=== PATIENT | female | born 1980 | race Caucasian/White ===

== ENCOUNTER → 2016-10-02 | Outpatient (CLI) | payer OTHER ==
[~2016-10-02] MED LIST: AMOXICILLIN500 M1 PO; ATIVAN0.5 MG PO; CLARITIN,ALAVAR10 MG PO; CLARITIN10 M3 PO; CLINDAMYCIN HC300 MG PO; DAILY VALUE1 EACH PO; DECADRON4 MG PO; DEXAMETHASONE4 MG PO; ENDOCET 5-3251 EACH PO; FEMARA2.5 MG PO; IBUPROFEN800 MG PO; IMODIUM MS REL1 EACH PO; LOMOTIL TABLET1 EACH PO; MULTIVITAMIN1 EAC2 PO; NEURONTIN300 MG PO; NOLVADEX20 MG PO; NORCO 5/3251 TABLET PO; OMEPRAZOLE20 M2 PO; ONDANSETRON HCL8 MG PO; OXYCODONE HCL5 MG PO; REGLAN10 MG PO; ROXICODONE5 MG PO
[2016-10-02 10:28] LABS: HEMATOCRIT 38.3 % (36.0-46.0); MCH 29.8 PG (29.0-34.0); MCHC 35.2 G/DL (30.0-36.0); MCV 84.5 FL (83-99); MEAN PLAT.VOLUME 11.5 uM^3 (9.5-12.4); PLATELET COUNT 252 K/uL (156-360); RBC DIS.WIDTH-CV 14.3 % (11.8-14.6); RBC DIS.WIDTH-SD 43.6 % (39-53); RED BLOOD COUNT 4.53 M/uL (3.80-5.20); WHITE BLOOD COUNT 17.4 K/uL (4.1-10.2)
[2016-10-02 10:42] LABS: INTER. NORMALIZED RATIO 1.1; PROTHROMBIN TIME 10.8 (9.2-11.2); PTT 20.3 (25-32)
== END | disposition home or self-care (01) ==
LOC: OPR 09:43 → EDSTATUS 10:00 → OPR 10:00
PROVIDERS: Internal Medicine Hematology & Oncology
PROC: 0FB13ZX Excision of Right Lobe Liver, Percutaneous Approach, Diagnostic (ICD-10-PCS; principal; 2016-10-02)
DX: C78.7 Secondary malignant neoplasm of liver and intrahepatic bile duct (principal); C50.919 Malignant neoplasm of unspecified site of unspecified female breast; C79.31 Secondary malignant neoplasm of brain; Z92.21 Personal history of antineoplastic chemotherapy; Z80.1 Family history of malignant neoplasm of trachea, bronchus and lung; Z80.3 Family history of malignant neoplasm of breast; Z80.8 Family history of malignant neoplasm of other organs or systems
CPT/HCPCS: 77012; 85027; 85610; 85730; 88307; 88341 TC; 88342 TC; J3010

== ENCOUNTER 2017-04-08 14:42 | Inpatient (IN) | payer OTHER ==
[~2017-04-08] VITALS: Ht 152.4 cm; Wt 59.6 kg
[~2017-04-08 14:42] MED LIST changes: +BASAGLAR K100 UNIT/1 SC; +LANTUS 3 M100 UNITS1 SCCONT; +MAALOX MAXIMUM355 ML PO; +NOVOLOG100 UNIT/1 SC; +OXAYDO5 MG PO; +XELODA500 MG PO; +ZANTAC300 MG PO; +ZOFRAN4 MG PO; +[UNRECOGNIZED DRUG - OTHER] IV
[2017-04-08] MEDS ORDERED: HERCEPTIN10 MG/0.47 IV (18:09)
[2017-04-08] MEDS ORDERED: POTASSIUM CHLO20 ME2 PO (18:10)
[2017-04-08] MEDS ORDERED: TRANSDERM-SCOP1 EACH TD (18:11)
[2017-04-08 20:52] LABS: ANION GAP 17 MEQ/L (2-14); CHLORIDE 93 MEQ/L (99-109); GFR ESTIMATE (CALCULATED) 45 mL/min/; GLUCOSE 169 mg/dL (70-99); POTASSIUM 3.2 MEQ/L (3.7-5.4); SAMPLE HEMOLYSIS CHECK 0; SAMPLE ICTERIC CHECK 2; SAMPLE LIPEMIA CHECK 0; SODIUM 134 MEQ/L (136-147); UREA NITROGEN (BUN) 21 mg/dL (9-23)
[2017-04-09 00:23] VITALS: BP 106/63
[2017-04-09 05:48] VITALS: BP 111/70
[2017-04-09 07:32] LABS: POINT-OF-CARE METER ID UU14174216
[2017-04-09 08:06] VITALS: BP 120/80
[2017-04-09 08:35] LABS: ALKALINE PHOSPHATASE 425 IU/L (3-129); ANION GAP 11 MEQ/L (2-14); CHLORIDE 92 MEQ/L (99-109); GFR ESTIMATE (CALCULATED) 42 mL/min/; GLUCOSE 211 mg/dL (70-99); POTASSIUM 3.8 MEQ/L (3.7-5.4); SAMPLE HEMOLYSIS CHECK 0; SAMPLE ICTERIC CHECK 2; SAMPLE LIPEMIA CHECK 0; SODIUM 129 MEQ/L (136-147); TOTAL BILIRUBIN 6.8 MG/DL (0.0-1.0); UREA NITROGEN (BUN) 22 mg/dL (9-23)
[2017-04-09 09:07] LABS: URIC ACID 10.4 mg/dL (3.1-9.2)
[2017-04-09 11:26] LABS: POINT-OF-CARE METER ID UU14174216
[2017-04-09 16:28] VITALS: BP 117/74
[2017-04-09 17:03] LABS: POINT-OF-CARE METER ID UU13113725
[2017-04-09 20:33] LABS: ANION GAP 11 MEQ/L (2-14); CHLORIDE 93 MEQ/L (99-109); GFR ESTIMATE (CALCULATED) 42 mL/min/; GLUCOSE 242 mg/dL (70-99); POTASSIUM 3.1 MEQ/L (3.7-5.4); SAMPLE HEMOLYSIS CHECK 0; SAMPLE ICTERIC CHECK 1; SAMPLE LIPEMIA CHECK 0; SODIUM 130 MEQ/L (136-147); UREA NITROGEN (BUN) 23 mg/dL (9-23)
[2017-04-09 21:16] LABS: POINT-OF-CARE METER ID UU13113725
[2017-04-09 23:30] VITALS: BP 106/78
[2017-04-10 06:38] LABS: POINT-OF-CARE METER ID UU13113725
[2017-04-10 07:01] LABS: ALKALINE PHOSPHATASE 500 IU/L (3-129); DIRECT BILIRUBIN 4.3 mg/dL (0.0-0.3); SAMPLE HEMOLYSIS CHECK 0; SAMPLE ICTERIC CHECK 2; SAMPLE LIPEMIA CHECK 0; TOTAL BILIRUBIN 6.8 MG/DL (0.0-1.0)
[2017-04-10 08:45] VITALS: BP 100/69
[2017-04-10 08:59] LABS: ANION GAP 11 MEQ/L (2-14); CHLORIDE 94 MEQ/L (99-109); GFR ESTIMATE (CALCULATED) 36 mL/min/; GLUCOSE 156 mg/dL (70-99); POTASSIUM 3.2 MEQ/L (3.7-5.4); SODIUM 132 MEQ/L (136-147); UREA NITROGEN (BUN) 28 mg/dL (9-23)
[2017-04-10 09:19] LABS: EOSINOPHIL (%) 1.8 % (0-5); EOSINOPHIL COUNT 0.2 K/uL (0-0.3); HEMATOCRIT 35.9 % (36.0-46.0); IMMATURE GRANULOCYTE (%) 0.6 % (0.0-0.7); IMMATURE GRANULOCYTE COUNT 0.1 K/uL; INSTRUMENT ABS NEUTROPHIL CT 8.8 K/uL; LYMPHOCYTE COUNT 0.6 K/uL (1.0-2.8); MCH 33.8 PG (29.0-34.0); MCHC 32.6 G/DL (30.0-36.0); MCV 103.8 FL (83-99); MEAN PLAT.VOLUME 13.7 uM^3 (9.5-12.4); MONOCYTE (%) 8.5 % (3-12); MONOCYTE COUNT 0.9 K/uL (0-0.8); NEUTROPHIL (%) 82.9 % (45-76); NEUTROPHIL COUNT 8.8 K/uL (1.8-6.4); PLATELET COUNT 304 K/uL (156-360); RBC DIS.WIDTH-CV 17.3 % (11.8-14.6); RBC DIS.WIDTH-SD 66.2 % (39-53); RED BLOOD COUNT 3.46 M/uL (3.80-5.20); WHITE BLOOD COUNT 10.7 K/uL (4.1-10.2)
[2017-04-10 10:51] LABS: POINT-OF-CARE METER ID UU13113725
[2017-04-10 12:07] LABS: ADD MIUA? NO; BILIRUBIN NEGATIVE; BLOOD NEGATIVE; GLUCOSE (STRIP) >=500; KETONES NEGATIVE; LEUKOCYTES NEGATIVE; NITRITE NEGATIVE; PROTEIN (STRIP) 30; SPECIFIC GRAVITY 1.008 (1.000-1.030); UCUL ADDED? NO; UROBILINOGEN 0.2 MG/DL (0.2-1.0)
[2017-04-10 12:16] LABS: COLOR YELLOW ((YELLOW))
[2017-04-10 14:55] LABS: ANION GAP 10 MEQ/L (2-14); CHLORIDE 91 MEQ/L (99-109); GFR ESTIMATE (CALCULATED) 39 mL/min/; GLUCOSE 219 mg/dL (70-99); POTASSIUM 3.7 MEQ/L (3.7-5.4); SAMPLE HEMOLYSIS CHECK 0; SAMPLE ICTERIC CHECK 2; SAMPLE LIPEMIA CHECK 0; SODIUM 127 MEQ/L (136-147); UREA NITROGEN (BUN) 27 mg/dL (9-23)
[2017-04-10 16:50] VITALS: BP 102/66
[2017-04-10 17:14] LABS: MAGNESIUM 1.2 mg/dl (1.3-2.7)
[2017-04-10 18:04] LABS: ANION GAP 12 MEQ/L (2-14); CHLORIDE 91 MEQ/L (99-109); GFR ESTIMATE (CALCULATED) 39 mL/min/; GLUCOSE 215 mg/dL (70-99); POTASSIUM 3.7 MEQ/L (3.7-5.4); SAMPLE HEMOLYSIS CHECK 0; SAMPLE ICTERIC CHECK 2; SAMPLE LIPEMIA CHECK 0; SODIUM 126 MEQ/L (136-147); UREA NITROGEN (BUN) 25 mg/dL (9-23)
[2017-04-10 20:51] VITALS: BP 105/70
[2017-04-11] VITALS (7 sets, daily range): BP systolic 97–118; BP diastolic 56–80
[2017-04-11 06:13] LABS: EOSINOPHIL COUNT 0.2 K/uL (0-0.3); HEMATOCRIT 27.7 % (36.0-46.0); IMMATURE GRANULOCYTE (%) 0.8 % (0.0-0.7); IMMATURE GRANULOCYTE COUNT 0.1 K/uL; INSTRUMENT ABS NEUTROPHIL CT 6.3 K/uL; LYMPHOCYTE COUNT 0.5 K/uL (1.0-2.8); MCH 35.4 PG (29.0-34.0); MCHC 34.3 G/DL (30.0-36.0); MCV 103.4 FL (83-99); MEAN PLAT.VOLUME 12.9 uM^3 (9.5-12.4); MONOCYTE (%) 9.5 % (3-12); MONOCYTE COUNT 0.7 K/uL (0-0.8); NEUTROPHIL (%) 81.4 % (45-76); NEUTROPHIL COUNT 6.3 K/uL (1.8-6.4); PLATELET COUNT 216 K/uL (156-360); RBC DIS.WIDTH-CV 17.2 % (11.8-14.6); RBC DIS.WIDTH-SD 63.7 % (39-53); WHITE BLOOD COUNT 7.7 K/uL (4.1-10.2)
[2017-04-11 06:18] LABS: RED BLOOD COUNT 2.68 M/uL (3.80-5.20)
[2017-04-11 06:23] LABS: ALKALINE PHOSPHATASE 396 IU/L (3-129); ANION GAP 9 MEQ/L (2-14); CHLORIDE 100 MEQ/L (99-109); GFR ESTIMATE (CALCULATED) 42 mL/min/; POTASSIUM 3.1 MEQ/L (3.7-5.4); SAMPLE HEMOLYSIS CHECK 0; SAMPLE ICTERIC CHECK 1; SAMPLE LIPEMIA CHECK 0; TOTAL BILIRUBIN 5.8 MG/DL (0.0-1.0); UREA NITROGEN (BUN) 21 mg/dL (9-23)
[2017-04-11 06:26] LABS: GLUCOSE 115 mg/dL (70-99); SODIUM 134 MEQ/L (136-147)
[2017-04-11 06:58] LABS: ANION GAP 13 MEQ/L (2-14); CHLORIDE 99 MEQ/L (99-109); GFR ESTIMATE (CALCULATED) 42 mL/min/; SAMPLE HEMOLYSIS CHECK 0; SAMPLE ICTERIC CHECK 1; SAMPLE LIPEMIA CHECK 0; UREA NITROGEN (BUN) 21 mg/dL (9-23)
[2017-04-11 06:59] LABS: GLUCOSE 119 mg/dL (70-99); SODIUM 134 MEQ/L (136-147); URIC ACID 3.1 mg/dL (3.1-9.2)
[2017-04-12 04:59] VITALS: BP 115/62
[2017-04-12 05:55] LABS: EOSINOPHIL (%) 1.1 % (0-5); EOSINOPHIL COUNT 0.1 K/uL (0-0.3); HEMATOCRIT 28.7 % (36.0-46.0); IMMATURE GRANULOCYTE (%) 0.5 % (0.0-0.7); INSTRUMENT ABS NEUTROPHIL CT 7.6 K/uL; LYMPHOCYTE COUNT 0.3 K/uL (1.0-2.8); MCH 35.1 PG (29.0-34.0); MCHC 34.1 G/DL (30.0-36.0); MCV 102.9 FL (83-99); MEAN PLAT.VOLUME 13.3 uM^3 (9.5-12.4); MONOCYTE (%) 9.1 % (3-12); MONOCYTE COUNT 0.8 K/uL (0-0.8); NEUTROPHIL (%) 85.9 % (45-76); NEUTROPHIL COUNT 7.6 K/uL (1.8-6.4); PLATELET COUNT 260 K/uL (156-360); RBC DIS.WIDTH-CV 17.1 % (11.8-14.6); RBC DIS.WIDTH-SD 63.9 % (39-53); RED BLOOD COUNT 2.79 M/uL (3.80-5.20); WHITE BLOOD COUNT 8.9 K/uL (4.1-10.2)
[2017-04-12 06:43] LABS: ANION GAP 6 MEQ/L (2-14); CHLORIDE 102 MEQ/L (99-109); GFR ESTIMATE (CALCULATED) 49 mL/min/; GLUCOSE 152 mg/dL (70-99); POTASSIUM 3.2 MEQ/L (3.7-5.4); SAMPLE HEMOLYSIS CHECK 0; SAMPLE ICTERIC CHECK 2; SAMPLE LIPEMIA CHECK 0; SODIUM 131 MEQ/L (136-147); UREA NITROGEN (BUN) 15 mg/dL (9-23)
[2017-04-12 06:44] LABS: ALKALINE PHOSPHATASE 432 IU/L (3-129); ANION GAP 7 MEQ/L (2-14); CHLORIDE 101 MEQ/L (99-109); GFR ESTIMATE (CALCULATED) 49 mL/min/; GLUCOSE 153 mg/dL (70-99); POTASSIUM 3.2 MEQ/L (3.7-5.4); SAMPLE HEMOLYSIS CHECK 0; SAMPLE ICTERIC CHECK 2; SAMPLE LIPEMIA CHECK 0; SODIUM 132 MEQ/L (136-147); TOTAL BILIRUBIN 6.3 MG/DL (0.0-1.0); UREA NITROGEN (BUN) 15 mg/dL (9-23)
[2017-04-12 07:19] VITALS: BP 119/66
[2017-04-12 08:39] LABS: POINT-OF-CARE METER ID UU13113698; POINT-OF-CARE USER ID NUTSLF44
[2017-04-12 12:00] VITALS: BP 115/77
[2017-04-12 12:27] LABS: POINT-OF-CARE METER ID UU14174216; POINT-OF-CARE USER ID NUTSLF44
[2017-04-12] MEDS ORDERED: ULORIC40 MG PO (14:16)
[2017-04-12 15:51] VITALS: BP 116/74
[2017-04-12 16:48] LABS: POINT-OF-CARE METER ID UU13113698
[2017-04-12 21:24] VITALS: BP 114/72
[2017-04-13 01:41] VITALS: BP 108/62
[2017-04-13 05:32] VITALS: BP 124/74
[2017-04-13 05:38] LABS: EOSINOPHIL (%) 0.8 % (0-5); EOSINOPHIL COUNT 0.1 K/uL (0-0.3); HEMATOCRIT 29.3 % (36.0-46.0); IMMATURE GRANULOCYTE (%) 0.5 % (0.0-0.7); IMMATURE GRANULOCYTE COUNT 0.1 K/uL; INSTRUMENT ABS NEUTROPHIL CT 8.2 K/uL; LYMPHOCYTE COUNT 0.5 K/uL (1.0-2.8); MCH 33.1 PG (29.0-34.0); MCHC 32.8 G/DL (30.0-36.0); MEAN PLAT.VOLUME 12.8 uM^3 (9.5-12.4); MONOCYTE (%) 10.7 % (3-12); MONOCYTE COUNT 1.1 K/uL (0-0.8); NEUTROPHIL (%) 83.1 % (45-76); NEUTROPHIL COUNT 8.2 K/uL (1.8-6.4); PLATELET COUNT 264 K/uL (156-360); RBC DIS.WIDTH-CV 17.5 % (11.8-14.6); RBC DIS.WIDTH-SD 64.3 % (39-53); WHITE BLOOD COUNT 9.9 K/uL (4.1-10.2)
[2017-04-13 06:39] LABS: ANION GAP 11 MEQ/L (2-14); CHLORIDE 103 MEQ/L (99-109); GFR ESTIMATE (CALCULATED) 54 mL/min/; SAMPLE HEMOLYSIS CHECK 0; SAMPLE ICTERIC CHECK 2; SAMPLE LIPEMIA CHECK 0; SODIUM 136 MEQ/L (136-147); UREA NITROGEN (BUN) 11 mg/dL (9-23)
[2017-04-13 06:46] LABS: ALKALINE PHOSPHATASE 448 IU/L (3-129); ANION GAP 12 MEQ/L (2-14); CHLORIDE 104 MEQ/L (99-109); GFR ESTIMATE (CALCULATED) 54 mL/min/; MAGNESIUM 1.1 mg/dl (1.3-2.7); POTASSIUM 2.9 MEQ/L (3.7-5.4); SAMPLE HEMOLYSIS CHECK 0; SAMPLE ICTERIC CHECK 2; SAMPLE LIPEMIA CHECK 0; SODIUM 137 MEQ/L (136-147); UREA NITROGEN (BUN) 11 mg/dL (9-23)
[2017-04-13 06:58] LABS: GLUCOSE 98 mg/dL (70-99)
[2017-04-13 07:01] LABS: GLUCOSE 98 mg/dL (70-99)
[2017-04-13 08:00] VITALS: BP 118/77
[2017-04-13 08:08] LABS: POINT-OF-CARE METER ID UU13113781; POINT-OF-CARE USER ID NUTSLF44
[2017-04-13 11:54] LABS: POINT-OF-CARE METER ID UU13113781; POINT-OF-CARE USER ID NUTSLF44
[2017-04-13 12:33] VITALS: BP 114/77
[2017-04-13] MEDS ORDERED: NEUTRA-PHOS,1 PACKET PO (13:52)
[2017-04-13] MEDS ORDERED: MAGNESIUM400 M1 PO (13:52)
[2017-04-13] MEDS ORDERED: POTASSIUM CHLO20 ME2 PO (13:53)
== END 2017-04-13 17:00 | disposition home health service (06) | DRG 641 ==
LOC: EME 14:42 → EDOF 16:17 → 5EAST 16:17 → 4EAST 16:17 → CANRESERV 16:41 → ENRESERV 16:41 → EDOF 17:48 → 4EAST 19:21 → ENRESERV 04-09 13:34 → CANRESERV 04-09 14:56 → ENRESERV 04-09 14:56 → 5EAST 04-09 15:59 → ENRESERV 04-10 19:38 → 4EAST 04-10 20:40
PROVIDERS: Emergency Medicine; Internal Medicine; Internal Medicine Nephrology; Student in an Organized Health Care Education/Training Program
DX: E83.52 Hypercalcemia (principal); E87.2 Acidosis; R18.8 Other ascites; N17.9 Acute kidney failure, unspecified; C79.51 Secondary malignant neoplasm of bone; C78.7 Secondary malignant neoplasm of liver and intrahepatic bile duct; G91.9 Hydrocephalus, unspecified; J98.11 Atelectasis; C79.31 Secondary malignant neoplasm of brain; R17 Unspecified jaundice; E87.1 Hypo-osmolality and hyponatremia; T38.0X5A Adverse effect of glucocorticoids and synthetic analogues, initial encounter; E83.39 Other disorders of phosphorus metabolism; E83.42 Hypomagnesemia; E09.9 Drug or chemical induced diabetes mellitus without complications; E87.6 Hypokalemia; E86.0 Dehydration; E87.8 Other disorders of electrolyte and fluid balance, not elsewhere classified; Z80.1 Family history of malignant neoplasm of trachea, bronchus and lung; Z85.3 Personal history of malignant neoplasm of breast; Z80.8 Family history of malignant neoplasm of other organs or systems; Z90.13 Acquired absence of bilateral breasts and nipples; Z90.710 Acquired absence of both cervix and uterus; Z92.3 Personal history of irradiation
CPT/HCPCS: 36415; 71010; 80048; 80048 91; 80053; 80069; 80076; 81003; 82948; 83605; 83735; 84100; 84550; 85025; 85610; 87040; 93005; 94799; 99281; 99285; J0630; J0696; J1650; J1815; J1940; J2405; J2543; J3475; J3480; J3489; J7030; J7050; J7120

== ENCOUNTER 2017-04-15 15:51 | Inpatient (IN) | payer OTHER ==
[~2017-04-15] VITALS: Ht 152.4 cm; Wt 64.8 kg
[~2017-04-15 15:51] MED LIST changes: +HERCEPTIN10 MG/0.47 IV; +MAGNESIUM400 M1 PO; +NEUTRA-PHOS,1 PACKET PO; +POTASSIUM CHLO20 ME2 PO; +TRANSDERM-SCOP1 EACH TD; +ULORIC40 MG PO
[2017-04-15 16:44] LABS: ADD MIUA? YES; BILIRUBIN NEGATIVE; BLOOD SMALL; COLOR YELLOW ((YELLOW)); GLUCOSE (STRIP) 150; KETONES NEGATIVE; LEUKOCYTES NEGATIVE; NITRITE NEGATIVE; PROTEIN (STRIP) 30; SPECIFIC GRAVITY 1.006 (1.000-1.030); UROBILINOGEN 0.2 MG/DL (0.2-1.0)
[2017-04-15 16:50] LABS: BACTERIA NONE SEEN /HPF; EPITHELIAL CELLS RARE /HPF; MUCUS TRACE /LPF; RED BLOOD CELLS 0-5 /HPF (0-5); UCUL ADDED? NO; WHITE BLOOD CELLS 0-5 /HPF (0-5)
[2017-04-15 16:52] LABS: HEMATOCRIT 31.8 % (36.0-46.0); MCH 33.8 PG (29.0-34.0); MCV 99.4 FL (83-99); MEAN PLAT.VOLUME 12.8 uM^3 (9.5-12.4); PLATELET COUNT 302 K/uL (156-360); RBC DIS.WIDTH-CV 17.5 % (11.8-14.6); RBC DIS.WIDTH-SD 63.2 % (39-53); WHITE BLOOD COUNT 12.1 K/uL (4.1-10.2)
[2017-04-15 17:05] LABS: CHLORIDE 103 mEq/L (99-109); POTASSIUM 3.1 mEq/L (3.7-5.4); SODIUM 133 mEq/L (136-147)
[2017-04-15 17:09] LABS: ANION GAP 14 MEQ/L (2-14); GLUCOSE 72 mg/dL (70-99); TOTAL BILIRUBIN 6.9 mg/dL (0.0-1.0)
[2017-04-15 17:11] LABS: ALKALINE PHOSPHATASE 634 IU/L (3-129); GFR ESTIMATE (CALCULATED) > 59 mL/min/
[2017-04-15 17:12] LABS: UREA NITROGEN (BUN) 11 mg/dL (9-23)
[2017-04-15 17:13] LABS: DIRECT BILIRUBIN 5.6 mg/dL (0.0-0.3)
[2017-04-15 17:14] LABS: URIC ACID 2.2 mg/dL (3.1-9.2)
[2017-04-15 17:15] LABS: LIPASE 30 U/L (1.0-51.0)
[2017-04-15 17:17] LABS: TROP-I INTERPRETATION NEGATIVE; TROPONIN-I 0.03 ng/mL (0.0-0.30)
[2017-04-15] MEDS ORDERED: PROCHLORPERAZIN10 MG PO (21:37)
[2017-04-15] MEDS ORDERED: ONDANSETRON HCL8 MG PO (21:38)
[2017-04-15] MEDS ORDERED: HALAVEN1 MG/2 ML IV (21:40)
[2017-04-15 22:18] VITALS: BP 116/66
[2017-04-16] VITALS (7 sets, daily range): BP systolic 104–133; BP diastolic 55–81
[2017-04-16 05:14] LABS: HEMATOCRIT 27.2 % (36.0-46.0); MCH 34.7 PG (29.0-34.0); MCHC 33.8 G/DL (30.0-36.0); MCV 102.6 FL (83-99); MEAN PLAT.VOLUME 12.3 uM^3 (9.5-12.4); PLATELET COUNT 249 K/uL (156-360); RBC DIS.WIDTH-CV 18.3 % (11.8-14.6); RBC DIS.WIDTH-SD 66.8 % (39-53); RED BLOOD COUNT 2.65 M/uL (3.80-5.20); WHITE BLOOD COUNT 10.2 K/uL (4.1-10.2)
[2017-04-16 06:33] LABS: ALKALINE PHOSPHATASE 459 IU/L (3-129); ANION GAP 13 MEQ/L (2-14); CHLORIDE 106 MEQ/L (99-109); GFR ESTIMATE (CALCULATED) 54 mL/min/; SAMPLE HEMOLYSIS CHECK 0; SAMPLE ICTERIC CHECK 2; SAMPLE LIPEMIA CHECK 0; SODIUM 135 MEQ/L (136-147); TOTAL BILIRUBIN 7.1 MG/DL (0.0-1.0); UREA NITROGEN (BUN) 14 mg/dL (9-23)
[2017-04-16 06:34] LABS: GLUCOSE 150 mg/dL (70-99); MAGNESIUM 0.9 mg/dl (1.3-2.7); POTASSIUM 4.5 MEQ/L (3.7-5.4)
[2017-04-17 03:56] VITALS: BP 111/55
[2017-04-17 05:24] LABS: EOSINOPHIL (%) 0.4 % (0-5); HEMATOCRIT 26.4 % (36.0-46.0); IMMATURE GRANULOCYTE (%) 1.2 % (0.0-0.7); IMMATURE GRANULOCYTE COUNT 0.1 K/uL; INSTRUMENT ABS NEUTROPHIL CT 9.5 K/uL; LYMPHOCYTE COUNT 0.3 K/uL (1.0-2.8); MCH 34.6 PG (29.0-34.0); MCHC 33.7 G/DL (30.0-36.0); MCV 102.7 FL (83-99); MEAN PLAT.VOLUME 12.2 uM^3 (9.5-12.4); MONOCYTE (%) 3.4 % (3-12); MONOCYTE COUNT 0.4 K/uL (0-0.8); NEUTROPHIL (%) 92.4 % (45-76); NEUTROPHIL COUNT 9.5 K/uL (1.8-6.4); PLATELET COUNT 245 K/uL (156-360); RBC DIS.WIDTH-CV 18.3 % (11.8-14.6); RBC DIS.WIDTH-SD 67.9 % (39-53); RED BLOOD COUNT 2.57 M/uL (3.80-5.20); WHITE BLOOD COUNT 10.3 K/uL (4.1-10.2)
[2017-04-17 06:29] LABS: ALKALINE PHOSPHATASE 433 IU/L (3-129); ANION GAP 8 MEQ/L (2-14); CHLORIDE 104 MEQ/L (99-109); GFR ESTIMATE (CALCULATED) 45 mL/min/; POTASSIUM 4.1 MEQ/L (3.7-5.4); SAMPLE HEMOLYSIS CHECK 0; SAMPLE ICTERIC CHECK 2; SAMPLE LIPEMIA CHECK 0; SODIUM 134 MEQ/L (136-147); TOTAL BILIRUBIN 6.9 MG/DL (0.0-1.0); UREA NITROGEN (BUN) 18 mg/dL (9-23)
[2017-04-17 06:30] LABS: GLUCOSE 88 mg/dL (70-99); MAGNESIUM 1.7 mg/dl (1.3-2.7)
[2017-04-17 07:47] LABS: POINT-OF-CARE METER ID UU13113781
[2017-04-17 08:15] VITALS: BP 107/64
[2017-04-17 11:30] LABS: POINT-OF-CARE METER ID UU13113781
[2017-04-17 12:20] VITALS: BP 115/70
[2017-04-17 16:11] LABS: POINT-OF-CARE METER ID UU13113781
[2017-04-17 16:39] VITALS: BP 116/63
[2017-04-17 20:00] VITALS: BP 118/76
[2017-04-18 01:03] VITALS: BP 119/60
[2017-04-18 06:55] LABS: POINT-OF-CARE METER ID UU13113725
[2017-04-18 06:56] LABS: EOSINOPHIL (%) 0.8 % (0-5); EOSINOPHIL COUNT 0.1 K/uL (0-0.3); HEMATOCRIT 24.2 % (36.0-46.0); IMMATURE GRANULOCYTE (%) 2.3 % (0.0-0.7); IMMATURE GRANULOCYTE COUNT 0.2 K/uL; INSTRUMENT ABS NEUTROPHIL CT 6.8 K/uL; LYMPHOCYTE COUNT 0.2 K/uL (1.0-2.8); MCH 32.9 PG (29.0-34.0); MCHC 32.2 G/DL (30.0-36.0); MCV 102.1 FL (83-99); MEAN PLAT.VOLUME 13.3 uM^3 (9.5-12.4); MONOCYTE (%) 1.9 % (3-12); MONOCYTE COUNT 0.1 K/uL (0-0.8); NEUTROPHIL (%) 91.4 % (45-76); NEUTROPHIL COUNT 6.8 K/uL (1.8-6.4); PLATELET COUNT 183 K/uL (156-360); RBC DIS.WIDTH-CV 18.2 % (11.8-14.6); RED BLOOD COUNT 2.37 M/uL (3.80-5.20); WHITE BLOOD COUNT 7.4 K/uL (4.1-10.2)
[2017-04-18 07:54] VITALS: BP 119/61
[2017-04-18 08:34] LABS: ANION GAP 8 MEQ/L (2-14); CHLORIDE 107 MEQ/L (99-109); GFR ESTIMATE (CALCULATED) 39 mL/min/; SAMPLE HEMOLYSIS CHECK 0; SAMPLE ICTERIC CHECK 1; SAMPLE LIPEMIA CHECK 0; SODIUM 136 MEQ/L (136-147); UREA NITROGEN (BUN) 19 mg/dL (9-23)
[2017-04-18 08:36] LABS: GLUCOSE 111 mg/dL (70-99); MAGNESIUM 1.4 mg/dl (1.3-2.7); POTASSIUM 3.2 MEQ/L (3.7-5.4)
[2017-04-18 15:25] VITALS: BP 116/66
[2017-04-18 20:26] VITALS: BP 126/81
[2017-04-18 23:47] VITALS: BP 114/63
[2017-04-19 06:59] LABS: HEMATOCRIT 24.5 % (36.0-46.0); MCH 34.2 PG (29.0-34.0); MCHC 33.5 G/DL (30.0-36.0); MCV 102.1 FL (83-99); MEAN PLAT.VOLUME 13.3 uM^3 (9.5-12.4); PLATELET COUNT 181 K/uL (156-360); RBC DIS.WIDTH-CV 18.6 % (11.8-14.6); RBC DIS.WIDTH-SD 68.7 % (39-53); WHITE BLOOD COUNT 6.5 K/uL (4.1-10.2)
[2017-04-19 07:43] VITALS: BP 117/74
[2017-04-19 08:18] LABS: ALKALINE PHOSPHATASE 362 IU/L (3-129); ANION GAP 11 MEQ/L (2-14); CHLORIDE 112 MEQ/L (99-109); DIRECT BILIRUBIN 3.9 mg/dL (0.0-0.3); GFR ESTIMATE (CALCULATED) 36 mL/min/; GLUCOSE 90 mg/dL (70-99); POTASSIUM 3.6 MEQ/L (3.7-5.4); SAMPLE HEMOLYSIS CHECK 0; SAMPLE ICTERIC CHECK 1; SAMPLE LIPEMIA CHECK 0; SODIUM 142 MEQ/L (136-147); UREA NITROGEN (BUN) 19 mg/dL (9-23)
[2017-04-19 09:23] LABS: MAGNESIUM 1.4 mg/dl (1.3-2.7)
[2017-04-19 09:40] LABS: POINT-OF-CARE METER ID UU13113675
[2017-04-19 11:18] VITALS: BP 118/72
[2017-04-19 11:56] LABS: POINT-OF-CARE METER ID UU13113725
[2017-04-19 15:26] VITALS: BP 122/78
[2017-04-19 16:31] LABS: POINT-OF-CARE METER ID UU13113725
[2017-04-19 18:58] VITALS: BP 124/84
[2017-04-19 21:07] LABS: POINT-OF-CARE METER ID UU13113725
[2017-04-19 22:38] VITALS: BP 122/65
[2017-04-20 03:48] VITALS: BP 116/84
[2017-04-20 05:54] LABS: POINT-OF-CARE METER ID UU13113725
[2017-04-20 05:58] LABS: CARBON DIOXIDE (BICARBONATE) 26.8 MEQ/L (20-31)
[2017-04-20 07:23] VITALS: BP 116/75
[2017-04-20 07:27] LABS: ANION GAP 9 MEQ/L (2-14); CHLORIDE 110 MEQ/L (99-109); GFR ESTIMATE (CALCULATED) 34 mL/min/; GLUCOSE 129 mg/dL (70-99); SAMPLE HEMOLYSIS CHECK 0; SAMPLE ICTERIC CHECK 2; SAMPLE LIPEMIA CHECK 0; SODIUM 143 MEQ/L (136-147); UREA NITROGEN (BUN) 19 mg/dL (9-23)
[2017-04-20 11:36] LABS: POINT-OF-CARE METER ID UU13113725
[2017-04-20 15:57] VITALS: BP 134/98
[2017-04-20 16:49] LABS: POINT-OF-CARE METER ID UU13113725
[2017-04-20 20:59] LABS: POINT-OF-CARE METER ID UU13113725
[2017-04-20 22:26] VITALS: BP 118/78
[2017-04-21] VITALS (10 sets, daily range): BP systolic 114–139; BP diastolic 64–99
[2017-04-21 05:44] LABS: POINT-OF-CARE METER ID UU13113725
[2017-04-21 07:02] LABS: HEMATOCRIT 21.1 % (36.0-46.0); MCHC 33.2 G/DL (30.0-36.0); MCV 102.4 FL (83-99); PLATELET COUNT 174 K/uL (156-360); RBC DIS.WIDTH-CV 19.3 % (11.8-14.6); RBC DIS.WIDTH-SD 70.6 % (39-53); RED BLOOD COUNT 2.06 M/uL (3.80-5.20); WHITE BLOOD COUNT 1.7 K/uL (4.1-10.2)
[2017-04-21 07:13] LABS: ANION GAP 6 MEQ/L (2-14); CHLORIDE 108 MEQ/L (99-109); GFR ESTIMATE (CALCULATED) 30 mL/min/; GLUCOSE 152 mg/dL (70-99); MAGNESIUM 1.4 mg/dl (1.3-2.7); SAMPLE HEMOLYSIS CHECK 0; SAMPLE ICTERIC CHECK 1; SAMPLE LIPEMIA CHECK 0; SODIUM 141 MEQ/L (136-147); UREA NITROGEN (BUN) 19 mg/dL (9-23)
[2017-04-21 09:59] LABS: ABS NEUTROPHIL COUNT 1.4; ANISOCYTOSIS 2+; BASOPHILS 0.9 %; EOSINOPHIL ABS CT 0; EOSINOPHILS 0.9 % (0-5.0); GIANT PLATELETS 1+; INSTRUMENT ABS NEUTROPHIL CT 1.2 K/uL; LYMPHOCYTES 12.3 % (15.0-45.0); MACROCYTES 2+; PLAT.SUFFICIENCY ADEQUATE; POLYCHROMASIA 2+; SEG.NEUTROPHILS 65.8 % (46.0-76.0); TARGET CELLS 1+
[2017-04-21 10:35] LABS: HEMATOCRIT 21.4 % (36.0-46.0); MCH 33.7 PG (29.0-34.0); MCHC 32.7 G/DL (30.0-36.0); MCV 102.9 FL (83-99); MEAN PLAT.VOLUME 12.4 uM^3 (9.5-12.4); PLATELET COUNT 172 K/uL (156-360); RBC DIS.WIDTH-CV 19.1 % (11.8-14.6); RED BLOOD COUNT 2.08 M/uL (3.80-5.20)
[2017-04-21 10:36] LABS: WHITE BLOOD COUNT 1.7 K/uL (4.1-10.2)
[2017-04-21 11:28] LABS: POINT-OF-CARE METER ID UU13113725
[2017-04-21 16:24] LABS: POINT-OF-CARE METER ID UU13113725
[2017-04-21 21:31] LABS: POINT-OF-CARE METER ID UU13113725
[2017-04-22 06:06] LABS: POINT-OF-CARE METER ID UU13113725
[2017-04-22 07:12] LABS: HEMATOCRIT 30.4 % (36.0-46.0); MCH 32.9 PG (29.0-34.0); MCHC 34.5 G/DL (30.0-36.0); MEAN PLAT.VOLUME 13.3 uM^3 (9.5-12.4); RBC DIS.WIDTH-CV 19.9 % (11.8-14.6); RBC DIS.WIDTH-SD 67.9 % (39-53)
[2017-04-22 07:16] LABS: MCV 95.3 FL (83-99); RED BLOOD COUNT 3.19 M/uL (3.80-5.20); WHITE BLOOD COUNT 1.2 K/uL (4.1-10.2)
[2017-04-22 07:40] VITALS: BP 138/64
[2017-04-22 09:40] LABS: PLATELET COUNT ND K/uL (156-360)
[2017-04-22 09:41] LABS: ABS NEUTROPHIL COUNT 0.7; ANISOCYTOSIS 2+; ATYPICAL LYMPHOCYTE 3.5 %; BAND NEUTROPHILS 4.4 % (0-8.0); BASOPHILS 0.9 %; BURR CELLS 1+; EOSINOPHIL ABS CT 0; EOSINOPHILS 2.6 % (0-5.0); INSTRUMENT ABS NEUTROPHIL CT 0.5 K/uL; LYMPHOCYTES 28.1 % (15.0-45.0); MACROCYTES 2+; MICROCYTOSIS 1+; PLAT.SUFFICIENCY ADEQUATE; POIKILOCYTOSIS 1+; SEG.NEUTROPHILS 55.3 % (46.0-76.0)
[2017-04-22 10:09] LABS: ALKALINE PHOSPHATASE 388 IU/L (3-129); ANION GAP 10 MEQ/L (2-14); CHLORIDE 111 MEQ/L (99-109); DIRECT BILIRUBIN 4.3 mg/dL (0.0-0.3); GFR ESTIMATE (CALCULATED) 26 mL/min/; GLUCOSE 138 mg/dL (70-99); POTASSIUM 4.5 MEQ/L (3.7-5.4); SAMPLE HEMOLYSIS CHECK 0; SAMPLE ICTERIC CHECK 2; SAMPLE LIPEMIA CHECK 0; SODIUM 144 MEQ/L (136-147); TOTAL BILIRUBIN 6.9 MG/DL (0.0-1.0); UREA NITROGEN (BUN) 19 mg/dL (9-23)
[2017-04-22 10:45] LABS: POINT-OF-CARE METER ID UU13113725
[2017-04-22 15:43] LABS: POINT-OF-CARE METER ID UU13113725
[2017-04-22 17:00] VITALS: BP 146/95
[2017-04-22 22:09] LABS: POINT-OF-CARE METER ID UU13113725
[2017-04-22 23:30] VITALS: BP 122/90
[2017-04-23 03:16] LABS: UR CREATININE CONCENTRATION 41.4 MG/DL
[2017-04-23 06:06] LABS: POINT-OF-CARE METER ID UU13113725; POINT-OF-CARE USER ID 608261329
[2017-04-23 06:25] LABS: HEMATOCRIT 29.1 % (36.0-46.0); MCH 31.1 PG (29.0-34.0); MCHC 32.3 G/DL (30.0-36.0); MCV 96.4 FL (83-99); PLATELET COUNT 170 K/uL (156-360); RBC DIS.WIDTH-SD 70.1 % (39-53); RED BLOOD COUNT 3.02 M/uL (3.80-5.20)
[2017-04-23 06:47] LABS: WHITE BLOOD COUNT 0.8 K/uL (4.1-10.2)
[2017-04-23 07:23] VITALS: BP 135/87
[2017-04-23 07:23] LABS: ALKALINE PHOSPHATASE 384 IU/L (3-129); ANION GAP 12 MEQ/L (2-14); CHLORIDE 112 MEQ/L (99-109); GFR ESTIMATE (CALCULATED) 28 mL/min/; GLUCOSE 110 mg/dL (70-99); POTASSIUM 3.9 MEQ/L (3.7-5.4); SAMPLE HEMOLYSIS CHECK 0; SAMPLE ICTERIC CHECK 2; SAMPLE LIPEMIA CHECK 0; SODIUM 145 MEQ/L (136-147); TOTAL BILIRUBIN 6.6 MG/DL (0.0-1.0); UREA NITROGEN (BUN) 18 mg/dL (9-23)
[2017-04-23 08:28] LABS: ABS NEUTROPHIL COUNT 0.3; ANISOCYTOSIS 2+; ATYPICAL LYMPHOCYTE 3.3 %; BAND NEUTROPHILS 1.6 % (0-8.0); BASOPHILS 2.7 %; BURR CELLS 2+; EOSINOPHIL ABS CT 0; INSTRUMENT ABS NEUTROPHIL CT 0.3 K/uL; LYMPHOCYTES 43.7 % (15.0-45.0); MACROCYTES 2+; MYELOCYTES 5.5 %; NUCLEATED RBC'S 3.8; OVALOCYTES 1+; PLAT.SUFFICIENCY ADEQUATE; POIKILOCYTOSIS 2+
[2017-04-23 08:32] LABS: SEG.NEUTROPHILS 32.8 % (46.0-76.0)
[2017-04-23 09:30] LABS: ANION GAP 11 MEQ/L (2-14); CHLORIDE 112 MEQ/L (99-109); GFR ESTIMATE (CALCULATED) 27 mL/min/; GLUCOSE 111 mg/dL (70-99); POTASSIUM 3.9 MEQ/L (3.7-5.4); SAMPLE HEMOLYSIS CHECK 0; SAMPLE ICTERIC CHECK 2; SAMPLE LIPEMIA CHECK 0; SODIUM 144 MEQ/L (136-147); UREA NITROGEN (BUN) 17 mg/dL (9-23)
[2017-04-23 11:49] LABS: POINT-OF-CARE METER ID UU13113725
== END 2017-04-23 12:58 | disposition home health service (06) | DRG 871 ==
LOC: EME 15:51 → 4EAST 19:58 → EDOF 19:58 → ENRESERV 20:00 → 4EAST 22:13 → ENRESERV 04-17 18:21 → 5EAST 04-17 23:10 → ENPENDDIS 04-23 → 5EAST 04-23 12:58
PROVIDERS: Emergency Medicine; Hospitalist; Internal Medicine; Internal Medicine Nephrology
DX: A41.9 Sepsis, unspecified organism (principal); J18.9 Pneumonia, unspecified organism; E83.52 Hypercalcemia; T38.0X5A Adverse effect of glucocorticoids and synthetic analogues, initial encounter; C50.919 Malignant neoplasm of unspecified site of unspecified female breast; T50.8X5A Adverse effect of diagnostic agents, initial encounter; E83.42 Hypomagnesemia; E43 Unspecified severe protein-calorie malnutrition; E87.1 Hypo-osmolality and hyponatremia; E87.6 Hypokalemia; E09.9 Drug or chemical induced diabetes mellitus without complications; C78.7 Secondary malignant neoplasm of liver and intrahepatic bile duct; C79.31 Secondary malignant neoplasm of brain; D89.9 Disorder involving the immune mechanism, unspecified; R18.8 Other ascites; N17.9 Acute kidney failure, unspecified; E83.39 Other disorders of phosphorus metabolism; Y95 Nosocomial condition; D53.9 Nutritional anemia, unspecified; N10 Acute pyelonephritis; K72.90 Hepatic failure, unspecified without coma; J30.2 Other seasonal allergic rhinitis; I87.8 Other specified disorders of veins; E86.0 Dehydration; J40 Bronchitis, not specified as acute or chronic; N14.1 Nephropathy induced by other drugs, medicaments and biological substances; N87.9 Dysplasia of cervix uteri, unspecified; R65.20 Severe sepsis without septic shock; Z85.3 Personal history of malignant neoplasm of breast; Z80.8 Family history of malignant neoplasm of other organs or systems; Z90.13 Acquired absence of bilateral breasts and nipples; Z78.0 Asymptomatic menopausal state; Z80.1 Family history of malignant neoplasm of trachea, bronchus and lung; Z80.3 Family history of malignant neoplasm of breast
CPT/HCPCS: 36415; 71020; 71250; 74177; 80048; 80053; 80069; 80076; 80202; 81003; 82043; 82248; 82330; 82436; 82570; 82803; 82948; 83036; 83605; 83690; 83735; 84100; 84156; 84300; 84484; 84540; 84550; 85025; 85025 91; 85027; 86850; 86900; 86901; 86920; 87040; 89190; 93005; 94799; 96361; 96372 XU; 96411; 96413; 99281; 99285; C1751; C1894; J0630; J0690; J1644; J1815; J1940; J2250; J2270; J2405; J2543; J3010; J3370; J3475; J3489; J7030; J7050; J7120; J7512; J9179; J9355; P9016; P9047; Q0164; S0028

== ENCOUNTER 2017-05-05 14:54 | Inpatient (IN) | payer OTHER ==
[~2017-05-05] VITALS: Ht 152.4 cm; Wt 69.4 kg
[~2017-05-05 14:54] MED LIST changes: +HALAVEN1 MG/2 ML IV; +PROCHLORPERAZIN10 MG PO
[2017-05-05 16:12] LABS: CHLORIDE 115 mEq/L (99-109); POTASSIUM 4.1 mEq/L (3.7-5.4); SODIUM 144 mEq/L (136-147)
[2017-05-05 16:14] LABS: GLUCOSE 152 mg/dL (70-99)
[2017-05-05 16:15] LABS: ANION GAP 9 MEQ/L (2-14)
[2017-05-05 16:18] LABS: GFR ESTIMATE (CALCULATED) 42 mL/min/; UREA NITROGEN (BUN) 11 mg/dL (9-23)
[2017-05-05 16:21] LABS: HEMATOCRIT 24.6 % (36.0-46.0); MCH 30.1 PG (29.0-34.0); MCHC 32.5 G/DL (30.0-36.0); MCV 92.5 FL (83-99); MEAN PLAT.VOLUME 11.4 uM^3 (9.5-12.4); PLATELET COUNT 211 K/uL (156-360); RBC DIS.WIDTH-CV 21.5 % (11.8-14.6); RBC DIS.WIDTH-SD 68.6 % (39-53); RED BLOOD COUNT 2.66 M/uL (3.80-5.20)
[2017-05-05 16:25] LABS: WHITE BLOOD COUNT 0.7 K/uL (4.1-10.2)
[2017-05-05] MEDS ORDERED: LEVOFLOXACIN250 MG PO (17:38)
[2017-05-05] MEDS ORDERED: PROMETHAZINE12.5 M1 PO (17:39)
[2017-05-05] MEDS ORDERED: SUPER CALCIUM600 MG PO (17:40)
[2017-05-05 23:57] VITALS: BP 113/65
[2017-05-06] VITALS (10 sets, daily range): BP systolic 97–122; BP diastolic 55–85
[2017-05-06 05:58] LABS: INFLUENZA A VIRAL ANTIGEN NEGATIVE; INFLUENZA B VIRAL ANTIGEN NEGATIVE
[2017-05-06 06:00] LABS: POINT-OF-CARE METER ID UU13113774
[2017-05-06 07:11] LABS: HEMATOCRIT 21.5 % (36.0-46.0); MCH 29.9 PG (29.0-34.0); MCHC 32.1 G/DL (30.0-36.0); MCV 93.1 FL (83-99); RBC DIS.WIDTH-CV 21.5 % (11.8-14.6); RBC DIS.WIDTH-SD 68.1 % (39-53); RED BLOOD COUNT 2.31 M/uL (3.80-5.20)
[2017-05-06 07:12] LABS: WHITE BLOOD COUNT 0.5 K/uL (4.1-10.2)
[2017-05-06 07:27] LABS: ANION GAP 10 MEQ/L (2-14); CHLORIDE 114 MEQ/L (99-109); GFR ESTIMATE (CALCULATED) 36 mL/min/; GLUCOSE 139 mg/dL (70-99); POTASSIUM 3.7 MEQ/L (3.7-5.4); SAMPLE HEMOLYSIS CHECK 0; SAMPLE ICTERIC CHECK 2; SAMPLE LIPEMIA CHECK 0; SODIUM 142 MEQ/L (136-147); UREA NITROGEN (BUN) 12 mg/dL (9-23)
[2017-05-06 08:08] LABS: ALKALINE PHOSPHATASE 483 IU/L (3-129); DIRECT BILIRUBIN 5.8 mg/dL (0.0-0.3); TOTAL BILIRUBIN 9.9 MG/DL (0.0-1.0)
[2017-05-06 09:02] LABS: ABS NEUTROPHIL COUNT 0.2; ANISOCYTOSIS 2+; EOSINOPHIL ABS CT 0; HEMATOLOGY COMMENT 1 DIFF ON BUFFY COAT; HYPOCHROMASIA 1+; INSTRUMENT ABS NEUTROPHIL CT 0.1 K/uL; MACROCYTES 1+; PLAT.SUFFICIENCY ADEQUATE; PLATELET COUNT 154 K/uL (156-360); POLYCHROMASIA 1+
[2017-05-06 11:56] LABS: POINT-OF-CARE METER ID UU13113774
[2017-05-06 16:15] LABS: POINT-OF-CARE METER ID UU13113774
[2017-05-07] VITALS (9 sets, daily range): BP systolic 109–136; BP diastolic 68–89
[2017-05-07 06:46] LABS: HEMATOCRIT 30.7 % (36.0-46.0); MCH 29.4 PG (29.0-34.0); MCHC 32.9 G/DL (30.0-36.0); MCV 89.2 FL (83-99); PLATELET COUNT 194 K/uL (156-360); RBC DIS.WIDTH-CV 18.6 % (11.8-14.6)
[2017-05-07 06:56] LABS: RED BLOOD COUNT 3.44 M/uL (3.80-5.20); WHITE BLOOD COUNT 0.7 K/uL (4.1-10.2)
[2017-05-07 07:06] LABS: ALKALINE PHOSPHATASE 478 IU/L (3-129); ANION GAP 11 MEQ/L (2-14); CHLORIDE 109 MEQ/L (99-109); GFR ESTIMATE (CALCULATED) 42 mL/min/; GLUCOSE 105 mg/dL (70-99); POTASSIUM 3.2 MEQ/L (3.7-5.4); SAMPLE HEMOLYSIS CHECK 0; SAMPLE ICTERIC CHECK 2; SAMPLE LIPEMIA CHECK 0; SODIUM 138 MEQ/L (136-147); TOTAL BILIRUBIN 10.1 MG/DL (0.0-1.0); UREA NITROGEN (BUN) 14 mg/dL (9-23)
[2017-05-07 07:51] LABS: DELETE MACHINE DIFF? YES
[2017-05-07 07:55] LABS: EOSINOPHIL (%) 0 % (0-5); IMMATURE GRANULOCYTE (%) 1.5 % (0.0-0.7); INSTRUMENT ABS NEUTROPHIL CT 0.1 K/uL; LYMPHOCYTE COUNT 0.4 K/uL (1.0-2.8); MONOCYTE (%) 12.3 % (3-12); MONOCYTE COUNT 0.1 K/uL (0-0.8); NEUTROPHIL (%) 20.1 % (45-76); NEUTROPHIL COUNT 0.1 K/uL (1.8-6.4)
[2017-05-07 11:16] LABS: POINT-OF-CARE METER ID UU13113774
[2017-05-07 16:47] LABS: POINT-OF-CARE METER ID UU13113774
[2017-05-08] VITALS (7 sets, daily range): BP systolic 103–136; BP diastolic 54–84
[2017-05-08 05:59] LABS: POINT-OF-CARE METER ID UU13113774
[2017-05-08 07:05] LABS: ALKALINE PHOSPHATASE 403 IU/L (3-129); ANION GAP 11 MEQ/L (2-14); CHLORIDE 109 MEQ/L (99-109); GFR ESTIMATE (CALCULATED) 39 mL/min/; GLUCOSE 80 mg/dL (70-99); POTASSIUM 3.3 MEQ/L (3.7-5.4); SAMPLE HEMOLYSIS CHECK 0; SAMPLE ICTERIC CHECK 2; SAMPLE LIPEMIA CHECK 0; SODIUM 138 MEQ/L (136-147); TOTAL BILIRUBIN 9.6 MG/DL (0.0-1.0); UREA NITROGEN (BUN) 13 mg/dL (9-23); VANCOMYCIN, TROUGH 25.6 MCG/ML (10-20)
[2017-05-08 07:10] LABS: HEMATOCRIT 28.5 % (36.0-46.0); MAGNESIUM 2.2 mg/dl (1.3-2.7); MCH 29.6 PG (29.0-34.0); MCHC 33.3 G/DL (30.0-36.0); MCV 88.8 FL (83-99); PLATELET COUNT 176 K/uL (156-360); RBC DIS.WIDTH-CV 19.4 % (11.8-14.6); RBC DIS.WIDTH-SD 59.7 % (39-53); RED BLOOD COUNT 3.21 M/uL (3.80-5.20)
[2017-05-08 07:41] LABS: WHITE BLOOD COUNT 0.7 K/uL (4.1-10.2)
[2017-05-08 07:57] LABS: ABS NEUTROPHIL COUNT 0.2; ANISOCYTOSIS 2+; ATYPICAL LYMPHOCYTE 1.2 %; BAND NEUTROPHILS 4.9 % (0-8.0); BASOPHILS 3.7 %; BURR CELLS 1+; EOSINOPHIL ABS CT 0; EOSINOPHILS 2.4 % (0-5.0); INSTRUMENT ABS NEUTROPHIL CT 0.1 K/uL; LYMPHOCYTES 59.8 % (15.0-45.0); MACROCYTES 2+; MYELOCYTES 2.4 %; NUCLEATED RBC'S 2.4; OVALOCYTES 1+; PLAT.SUFFICIENCY ADEQUATE; POIKILOCYTOSIS 1+; SEG.NEUTROPHILS 18.3 % (46.0-76.0); TEAR DROP CELLS 1+
[2017-05-08 11:42] LABS: HSV-2 IgG Antibody <0.90 Index (<0.90)
[2017-05-08 11:54] LABS: POINT-OF-CARE METER ID UU13113774
[2017-05-08 16:20] LABS: POINT-OF-CARE METER ID UU13113774
[2017-05-09 03:27] VITALS: BP 107/61
[2017-05-09 07:26] VITALS: BP 102/60
[2017-05-09 07:29] LABS: POINT-OF-CARE METER ID UU13113774
[2017-05-09 10:42] VITALS: BP 123/67
[2017-05-09 11:29] LABS: POINT-OF-CARE METER ID UU13113725
[2017-05-09 11:47] LABS: HEMATOCRIT 30.3 % (36.0-46.0); MCH 30.3 PG (29.0-34.0); MCHC 34.3 G/DL (30.0-36.0); MCV 88.3 FL (83-99); PLATELET COUNT 162 K/uL (156-360); RBC DIS.WIDTH-CV 20.3 % (11.8-14.6); RBC DIS.WIDTH-SD 61.8 % (39-53); RED BLOOD COUNT 3.43 M/uL (3.80-5.20)
[2017-05-09 11:51] LABS: WHITE BLOOD COUNT 1.1 K/uL (4.1-10.2)
[2017-05-09 12:08] LABS: ANION GAP 12 MEQ/L (2-14); CHLORIDE 112 MEQ/L (99-109); GFR ESTIMATE (CALCULATED) 45 mL/min/; GLUCOSE 96 mg/dL (70-99); POTASSIUM 3.3 MEQ/L (3.7-5.4); SAMPLE HEMOLYSIS CHECK 1; SAMPLE ICTERIC CHECK 2; SAMPLE LIPEMIA CHECK 0; SODIUM 141 MEQ/L (136-147); UREA NITROGEN (BUN) 14 mg/dL (9-23)
[2017-05-09 12:54] LABS: ALKALINE PHOSPHATASE 419 IU/L (3-129); DIRECT BILIRUBIN 4.9 mg/dL (0.0-0.3); TOTAL BILIRUBIN 8.5 MG/DL (0.0-1.0)
[2017-05-09 15:40] VITALS: BP 101/62
[2017-05-09 15:50] LABS: POINT-OF-CARE METER ID UU13113725
[2017-05-09 18:33] LABS: POINT-OF-CARE METER ID UU13113774
[2017-05-09 18:45] VITALS: BP 115/69
[2017-05-09 19:07] LABS: C DIFF TOXIN NEGATIVE (NEGATIVE)
[2017-05-09 19:16] LABS: PROBE CHECK PASS; SPECIMEN PROCESSING CONTROL PASS
[2017-05-09 19:25] LABS: ADD MIUA? YES; BILIRUBIN NEGATIVE; BLOOD MODERATE; GLUCOSE (STRIP) NEGATIVE; KETONES 5; LEUKOCYTES NEGATIVE; NITRITE NEGATIVE; PROTEIN (STRIP) 30; UROBILINOGEN 0.2 MG/DL (0.2-1.0)
[2017-05-09 19:31] LABS: BACTERIA RARE /HPF; COLOR YELLOW ((YELLOW)); EPITHELIAL CELLS 1+ /HPF; MUCUS TRACE /LPF; RED BLOOD CELLS 0-5 /HPF (0-5); UCUL ADDED? NO; WHITE BLOOD CELLS 0-5 /HPF (0-5)
[2017-05-09 22:42] VITALS: BP 118/64
[2017-05-10 02:28] VITALS: BP 127/76
[2017-05-10 05:58] LABS: POINT-OF-CARE METER ID UU13113725
[2017-05-10 06:16] LABS: MCH 30.1 PG (29.0-34.0); MCHC 34.2 G/DL (30.0-36.0); MCV 88.1 FL (83-99); RBC DIS.WIDTH-CV 20.4 % (11.8-14.6); RBC DIS.WIDTH-SD 62.8 % (39-53); RED BLOOD COUNT 3.52 M/uL (3.80-5.20)
[2017-05-10 06:22] LABS: WHITE BLOOD COUNT 1.7 K/uL (4.1-10.2)
[2017-05-10 06:58] LABS: ALKALINE PHOSPHATASE 410 IU/L (3-129); ANION GAP 13 MEQ/L (2-14); CHLORIDE 108 MEQ/L (99-109); GFR ESTIMATE (CALCULATED) 45 mL/min/; GLUCOSE 84 mg/dL (70-99); MAGNESIUM 1.6 mg/dl (1.3-2.7); POTASSIUM 2.9 MEQ/L (3.7-5.4); SAMPLE HEMOLYSIS CHECK 0; SAMPLE ICTERIC CHECK 2; SAMPLE LIPEMIA CHECK 0; SODIUM 140 MEQ/L (136-147); TOTAL BILIRUBIN 9.5 MG/DL (0.0-1.0); UREA NITROGEN (BUN) 13 mg/dL (9-23)
[2017-05-10 07:18] LABS: ABS NEUTROPHIL COUNT 1.1; ANISOCYTOSIS 2+; ATYPICAL LYMPHOCYTE 0.9 %; BASOPHILS 4.5 %; EOSINOPHIL ABS CT 0; GIANT PLATELETS 1+; INSTRUMENT ABS NEUTROPHIL CT 0.8 K/uL; LYMPHOCYTES 18.7 % (15.0-45.0); MACROCYTES 2+; METAMYELOCYTES 0.9 %; NUCLEATED RBC'S 4.5; PLAT.SUFFICIENCY ADEQUATE; PLATELET CLUMPS PRESENT - PLATELET COUNT APPEARS ADQ.; SPHEROCYTES 1+; TEAR DROP CELLS 1+
[2017-05-10 07:23] VITALS: BP 111/65
[2017-05-10 11:28] VITALS: BP 113/70
[2017-05-10 11:33] LABS: POINT-OF-CARE METER ID UU13113774
[2017-05-10 15:59] VITALS: BP 129/72
[2017-05-10 16:04] LABS: POINT-OF-CARE METER ID UU13113774
[2017-05-10 18:53] VITALS: BP 112/65
[2017-05-10 22:54] VITALS: BP 110/66
[2017-05-11 02:56] VITALS: BP 102/63
[2017-05-11 05:44] LABS: POINT-OF-CARE METER ID UU13113725
[2017-05-11 06:40] VITALS: BP 111/60
[2017-05-11 06:45] LABS: MAGNESIUM 1.8 mg/dl (1.3-2.7)
[2017-05-11 08:24] LABS: HEMATOCRIT 27.4 % (36.0-46.0); MCH 30.3 PG (29.0-34.0); MCHC 34.3 G/DL (30.0-36.0); MCV 88.4 FL (83-99); PLATELET COUNT 153 K/uL (156-360); RBC DIS.WIDTH-CV 21.1 % (11.8-14.6); RBC DIS.WIDTH-SD 64.2 % (39-53); WHITE BLOOD COUNT 2.7 K/uL (4.1-10.2)
[2017-05-11 08:45] LABS: ANION GAP 12 MEQ/L (2-14); CHLORIDE 113 MEQ/L (99-109); GFR ESTIMATE (CALCULATED) 45 mL/min/; GLUCOSE 69 mg/dL (70-99); POTASSIUM 2.9 MEQ/L (3.7-5.4); SODIUM 143 MEQ/L (136-147); UREA NITROGEN (BUN) 12 mg/dL (9-23)
[2017-05-11 10:24] LABS: ALKALINE PHOSPHATASE 370 IU/L (3-129); DIRECT BILIRUBIN 4.4 mg/dL (0.0-0.3)
[2017-05-11 11:19] LABS: POINT-OF-CARE METER ID UU13113774
[2017-05-11 12:55] VITALS: BP 116/72
[2017-05-11 16:18] VITALS: BP 103/71
[2017-05-11 16:52] LABS: POINT-OF-CARE METER ID UU13113774
[2017-05-11 20:11] VITALS: BP 113/75
[2017-05-11 23:11] VITALS: BP 108/65
[2017-05-12 03:50] VITALS: BP 105/69
[2017-05-12 05:15] LABS: CARBON DIOXIDE (BICARBONATE) 17.7 MEQ/L (20-31)
[2017-05-12 05:50] LABS: HEMATOCRIT 29.1 % (36.0-46.0); MCH 28.4 PG (29.0-34.0); MCHC 32.6 G/DL (30.0-36.0); MCV 86.9 FL (83-99); NRBC (%) 0.5 /100 WBC (0-0); PLATELET COUNT 137 K/uL (156-360); RBC DIS.WIDTH-CV 21.2 % (11.8-14.6); RBC DIS.WIDTH-SD 63.7 % (39-53); RED BLOOD COUNT 3.35 M/uL (3.80-5.20); WHITE BLOOD COUNT 4.4 K/uL (4.1-10.2)
[2017-05-12 06:09] LABS: POINT-OF-CARE METER ID UU13113774
[2017-05-12 06:19] LABS: CHLORIDE 114 MEQ/L (99-109); GFR ESTIMATE (CALCULATED) 42 mL/min/; GLUCOSE 78 mg/dL (70-99); SODIUM 142 MEQ/L (136-147); UREA NITROGEN (BUN) 11 mg/dL (9-23)
[2017-05-12 06:20] LABS: ABS NEUTROPHIL COUNT 3.7; ANISOCYTOSIS 1+; BAND NEUTROPHILS 5.4 % (0-8.0); BASOPHILS 1.8 %; EOSINOPHIL ABS CT 0; INSTRUMENT ABS NEUTROPHIL CT 3.3 K/uL; LYMPHOCYTES 4.5 % (15.0-45.0); METAMYELOCYTES 1.8 %; NUCLEATED RBC'S 0.9; PLAT.SUFFICIENCY DECREASED; SMUDGE CELLS 6.3; SPHEROCYTES 1+; TEAR DROP CELLS 1+
[2017-05-12 06:20] LABS: POTASSIUM 3.5 MEQ/L (3.7-5.4)
[2017-05-12 06:28] LABS: SEG.NEUTROPHILS 78.4 % (46.0-76.0)
[2017-05-12 06:31] LABS: ALKALINE PHOSPHATASE 445 IU/L (3-129); ANION GAP 11 MEQ/L (2-14); SAMPLE HEMOLYSIS CHECK 0; SAMPLE ICTERIC CHECK 2; SAMPLE LIPEMIA CHECK 0
[2017-05-12 07:13] LABS: POINT-OF-CARE METER ID UU13113725
[2017-05-12 07:57] LABS: MAGNESIUM 1.6 mg/dl (1.3-2.7)
[2017-05-12 08:31] VITALS: BP 128/78
[2017-05-12 11:10] LABS: POINT-OF-CARE METER ID UU13113725
[2017-05-12 15:18] LABS: POINT-OF-CARE METER ID UU13113774
[2017-05-12 15:33] VITALS: BP 133/88
[2017-05-12 19:57] VITALS: BP 129/77
[2017-05-12 20:49] LABS: INTACT PARATHYROID HORMONE 196 pg/mL (10-69)
[2017-05-13 04:55] VITALS: BP 133/79
[2017-05-13 05:37] LABS: POINT-OF-CARE METER ID UU13113774
[2017-05-13 06:38] LABS: MCH 28.8 PG (29.0-34.0); MCV 87.2 FL (83-99); NRBC (%) 0.5 /100 WBC (0-0); PLATELET COUNT 159 K/uL (156-360); RBC DIS.WIDTH-CV 21.3 % (11.8-14.6); RBC DIS.WIDTH-SD 63.4 % (39-53); RED BLOOD COUNT 3.44 M/uL (3.80-5.20); WHITE BLOOD COUNT 6.2 K/uL (4.1-10.2)
[2017-05-13 07:09] LABS: ALKALINE PHOSPHATASE 477 IU/L (3-129); ANION GAP 10 MEQ/L (2-14); CHLORIDE 115 MEQ/L (99-109); GFR ESTIMATE (CALCULATED) 36 mL/min/; POTASSIUM 3.5 MEQ/L (3.7-5.4); SAMPLE HEMOLYSIS CHECK 0; SAMPLE ICTERIC CHECK 2; SAMPLE LIPEMIA CHECK 0; SODIUM 143 MEQ/L (136-147); TOTAL BILIRUBIN 8.3 MG/DL (0.0-1.0); UREA NITROGEN (BUN) 11 mg/dL (9-23)
[2017-05-13 07:15] LABS: GLUCOSE 174 mg/dL (70-99)
[2017-05-13 07:19] LABS: ABS NEUTROPHIL COUNT 5.5; ANISOCYTOSIS 2+; BAND NEUTROPHILS 11.5 % (0-8.0); EOSINOPHIL ABS CT 0; INSTRUMENT ABS NEUTROPHIL CT 4.5 K/uL; LYMPHOCYTES 3.5 % (15.0-45.0); MACROCYTES 1+; METAMYELOCYTES 0.9 %; MICROCYTOSIS 1+; MYELOCYTES 0.9 %; PLAT.SUFFICIENCY ADEQUATE
[2017-05-13 07:58] VITALS: BP 132/84
[2017-05-13 11:19] LABS: POINT-OF-CARE METER ID UU13113725
[2017-05-13 11:56] VITALS: BP 128/92
[2017-05-13 15:30] LABS: POINT-OF-CARE METER ID UU13113774
[2017-05-13 16:00] VITALS: BP 135/95
[2017-05-14 00:51] VITALS: BP 135/104
[2017-05-14 05:00] VITALS: BP 153/113
[2017-05-14 07:02] LABS: POINT-OF-CARE METER ID UU13113725
[2017-05-14 08:18] VITALS: BP 155/110
[2017-05-14] MEDS ORDERED: DECADRON4 MG PO (10:38)
[2017-05-14] MEDS ORDERED: MORPHINE CON20 MG/M1 PO (10:40)
[2017-05-14] MEDS ORDERED: ATIVAN INTE2 MG/1 ML PO (10:40)
[2017-05-14 11:52] LABS: POINT-OF-CARE METER ID UU13113725
[2017-05-14 12:53] VITALS: BP 157/111
== END 2017-05-14 13:00 | disposition hospice, home (50) | DRG 314 ==
LOC: EME 14:54 → 5EAST 17:19 → EDOF 17:19 → ENRESERV 17:22 → 5EAST 19:29 → ENRESERV 05-13 08:20 → 5EAST 05-13 08:20 → CANRESERV 05-13 08:51 → ENRESERV 05-13 08:51 → 5EAST 05-13 15:44 → ENPENDDIS 05-14 → 5EAST 05-14 13:00
PROVIDERS: Emergency Medicine; Hospitalist; Internal Medicine
PROC: 30233N1 Transfusion of Nonautologous Red Blood Cells into Peripheral Vein, Percutaneous Approach (ICD-10-PCS; principal; 2017-05-06)
PROC: 0WP803Z Removal of Infusion Device from Chest Wall, Open Approach (ICD-10-PCS; principal; 2017-05-06)
PROC: 0W980ZZ Drainage of Chest Wall, Open Approach (ICD-10-PCS; principal; 2017-05-06)
DX: T80.810A Extravasation of vesicant antineoplastic chemotherapy, initial encounter (principal); T82.514A Breakdown (mechanical) of infusion catheter, initial encounter; E46 Unspecified protein-calorie malnutrition; R50.81 Fever presenting with conditions classified elsewhere; D70.1 Agranulocytosis secondary to cancer chemotherapy; E83.51 Hypocalcemia; C78.7 Secondary malignant neoplasm of liver and intrahepatic bile duct; J15.9 Unspecified bacterial pneumonia; C50.919 Malignant neoplasm of unspecified site of unspecified female breast; Z51.5 Encounter for palliative care; C79.31 Secondary malignant neoplasm of brain; E83.52 Hypercalcemia; E83.42 Hypomagnesemia; C94.6 Myelodysplastic disease, not elsewhere classified; D68.4 Acquired coagulation factor deficiency; C79.51 Secondary malignant neoplasm of bone; E83.39 Other disorders of phosphorus metabolism; S20.212A Contusion of left front wall of thorax, initial encounter; D63.8 Anemia in other chronic diseases classified elsewhere; Y95 Nosocomial condition; N18.3 Chronic kidney disease, stage 3 (moderate); E87.6 Hypokalemia; K12.30 Oral mucositis (ulcerative), unspecified; N17.9 Acute kidney failure, unspecified; E87.2 Acidosis; I87.8 Other specified disorders of veins; J98.11 Atelectasis; D75.89 Other specified diseases of blood and blood-forming organs; E86.9 Volume depletion, unspecified; I62.9 Nontraumatic intracranial hemorrhage, unspecified; K72.90 Hepatic failure, unspecified without coma; R13.10 Dysphagia, unspecified; Z17.0 Estrogen receptor positive status [ER+]; Z90.13 Acquired absence of bilateral breasts and nipples; Z85.3 Personal history of malignant neoplasm of breast; Z98.82 Breast implant status; Z80.8 Family history of malignant neoplasm of other organs or systems; Z80.3 Family history of malignant neoplasm of breast; Z80.1 Family history of malignant neoplasm of trachea, bronchus and lung
CPT/HCPCS: 36415; 70450; 70553; 71010; 71020; 71250; 80048; 80053; 80069; 80076; 80202; 81003; 82306; 82330; 82803; 82948; 83605; 83735; 83970; 84100; 85025; 85027; 85384; 85610; 85730; 86695 90; 86696 90; 86850; 86900; 86901; 86920; 87040; 87070; 87205; 87449; 87493; 87502; 87506; 93971; 94640; 94640 76; 94799; 96361; 96365; 96374; 96375; 99202; 99281; 99285; J0610; J0636; J0692; J1100; J1170; J1626; J1644; J1815; J2270; J2405; J3370; J3475; J3480; J7030; J7040; J7050; P9016